=== PATIENT | male | born 1990 | race Caucasian/White ===

== ENCOUNTER → 2016-11-10 | Outpatient (CLI) | payer OTHER ==
[2016-11-10 15:09] LABS: BASO % 0.4 % (0.0-1.0); EOS % 0.7 % (1.0-4.0); LYMPH % 35.8 % (27.0-41.0); MEAN CELL VOLUME 83.9 fl (80.0-94.0); MEAN CORPUSCULAR HGB 29.2 pg (27.0-31.0); MEAN CORPUSCULAR HGB CONC 34.8 g/dl (33.0-37.0); MEAN PLATELET VOLUME 11.2 fl (9.6-12.3); MONO # 0.4 10*3/uL (0.1-1.0); MONO % 6.4 % (3.0-9.0); NEUT # 3.1 10*3/uL (2.3-7.9); NEUT % 56.3 % (47.0-73.0); PLATELET COUNT AUTOMATED 220 10*3/uL (130-400); RED BLOOD COUNT 5.48 10*6/uL (4.50-5.90); RED CELL DISTRI WIDTH 12.7 % (0-14.5); WHITE BLOOD COUNT 5.5 10*3/uL (4.8-10.8)
[2016-11-10 15:29] LABS: ALBUMIN 4.7 gm/dl (3.1-4.5); BILIRUBIN, TOTAL 0.8 mg/dl (0.2-1.0); BUN 13 mg/dl (7-24); CARBON DIOXIDE 25 mmol/L (21-32); CHLORIDE 104 mmol/L (98-107); CHOLESTEROL 251 mg/dL (<200); EST GLOM FILT AFRICAN AMERICAN > 60 ml/min; GLUCOSE 85 mg/dL (65-99); POTASSIUM 4.1 mmol/L (3.5-5.1); SGOT/AST 26 IU/L (3-35); SGPT/ALT 63 U/L (12-78); SODIUM 142 mmol/L (136-145); TRIGLYCERIDES 163 mg/dl (<150); VLDL CHOLESTEROL 33 mg/dL (6-40)
[2016-11-10 15:39] LABS: ALKALINE PHOSPHATASE 77 U/L (45-117); HDL CHOLESTEROL 72 mg/dl (40-60); LDL CHOLESTEROL 146 mg/dL (9-159); TOTAL PROTEIN 7.7 gm/dL (6.4-8.2)
== END | disposition home or self-care (01) ==
LOC: LAB 14:02
PROVIDERS: Nurse Practitioner Family
DX: R03.0 Elevated blood-pressure reading, without diagnosis of hypertension (principal); R00.2 Palpitations; R79.89 Other specified abnormal findings of blood chemistry

== ENCOUNTER 2016-12-20 00:53 | Inpatient (IN) | payer OTHER ==
[~2016-12-20] VITALS: Ht 180.3 cm; Wt 109.5 kg
[2016-12-20] VITALS (8 sets, daily range): BP systolic 112–148; BP diastolic 52–95
--- NOTE | ~2016-12-20 | PR ---
[place], [place] PROGRESS NOTE NAME: ROGELIO FRENCH [facility] #: [id number] UNIT #: [id number] ROOM: 502 DOCTOR: KELLY AKHTAR,RICHIEMadhuri BIRTHDATE: [birth year] DOS: 12/21/2016 REASON FOR VISIT: Atrial fibrillation. HISTORY OF PRESENT ILLNESS: The patient is admitted with atrial fibrillation and his 2D echo is unremarkable. He had a few episodes of rapid heart rates with activity and he was symptomatic, but he remains in atrial fibrillation since yesterday but denies any chest pain, dizziness or syncope. No shortness of breath. REVIEW OF SYSTEMS: Review of the 8 systems negative except as mentioned above. RHYTHM STRIPS: The patient has atrial fibrillation with occasional rapid ventricular rate. PHYSICAL EXAMINATION: VITAL SIGNS: Blood pressure 99/63, pulse 72, BMI 33.7. GENERAL: Alert, comfortable, in no acute distress. HEENT: Pupils are round and equal. No jaundice. Tongue was moist and pharynx was clear. NECK: Supple, no distended neck veins, no carotid bruit. CHEST: Symmetrical, nontender. LUNGS: Clear to auscultation bilaterally. HEART: Irregularly irregular, no S3, no palpable thrills. ABDOMEN: Benign. Bowel sounds normal. EXTREMITIES: Showed no edema. Distal pulses are palpable. SKIN: Warm and dry. No cyanosis, no clubbing. NEUROLOGIC: No focal neurologic deficit. RECTAL: Deferred. GENITOURINARY: Deferred. LABORATORY DATA: Rhythm strips and medications, allergies reviewed. IMPRESSION: 1. New onset atrial fibrillation with intermittent rapid ventricular rate, CHADS2-VASc score of 0. Continue his diltiazem and he received 1 dose of intravenous digoxin for rate control. Due to his recurrent tachyarrhythmia, I would recommend ADOLFO-guided cardioversion for rhythm management. Risks, complications, and alternatives for ADOLFO cardioversion discussed. He is agreeable to pursue the ADOLFO-guided cardioversion. Post-cardioversion, he needs to be anticoagulated. I would put him on Eliquis 5 mg twice a day, Coumadin versus new oral anticoagulants were discussed. He is agreeable to take Eliquis ____ after cardioversion. He is aware of the side effects, especially the risk of bleeding. We will discontinue Lovenox. If he converted to sinus rhythm, I would discontinue Cardizem and send him home on metoprolol 25 mg on p.r.n. basis for rapid heart rates, also discontinued aspirin today. 2. Dyslipidemia, on statins. 3. Overweight. Again diet, exercise, weight loss discussed. 4. If the cardioversion is successful and he is stable, he can go home today and he can attend work from tomorrow and we will follow him in our office in 1-2 [place], [place] PROGRESS NOTE NAME: ROGELIO FRENCH UNIT #: [id number] ROOM: [facility] DOCTOR: KELLY AKHTAR,BARBARA BIRTHDATE: 86 weeks. 5. If he develops recurrent atrial fibrillation, then I would refer him to six pack loader operator for antiarrhythmic therapy and/or ablation. Above treatment plan discussed with the patient and his fiance who is at the bedside and all questions answered. BARBARA MENDOZA MD CM:PNTRANS [id number] BARBARA MENDOZA MD 12/22/16 0604 interface
--- NOTE | ~2016-12-20 | CON ---
[place], [place] REPORT OF CONSULTATION [id number] UN[facility] #: [id number] ROOM: 502 DOCTOR: BARBARA MENDOZA MD BIRTHDATE: [birth year] DOS: 12/20/2016 REASON FOR CONSULTATION: Atrial fibrillation. CLINICAL HISTORY: The patient is a 26-year-old pleasant gentleman with history of intermittent palpitations, non-morbid obesity, presented to the Emergency Room for palpitations. He had no prior history of hypertension, diabetes, or any cardiac history. He noted to have some heart palpitations at work and came to the Emergency Room. Apparently had significant palpitations twice in the past. The first episode was in June 2016 and he was evaluated in the Emergency Room and at that time his EKG appears to be in sinus rhythm and he was discharged home. The second episode was in October of 2016 at work and again nothing was documented on his EKG. Yesterday, he was noted to have these heart palpitations that started late night after 11:00 p.m. 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 His EKG at that work showed he was in atrial fibrillation. Subsequently, he was brought to the Emergency Room and was admitted to the hospital and the cardiology was consulted for further recommendations. He received p.o. Cardizem and intravenous digoxin this morning for the tachycardia. He was noted to have significant tachycardia last night, his heart rates as high as 190 beats per minute. He denies any fever and chills. He did have a bachelor green party on Monday and did consume some alcohol, but he did not have any symptoms on Monday or Monday, except this Monday night but he does not drink excessive coffee or tea. He did cut back on his caffeine intake since the past several months. His dad has history of atrial fibrillation in his 50s. REVIEW OF SYSTEMS: Review of the 10 systems negative except as mentioned. He denies any cough, fever or chills. No genitourinary symptoms. No gastrointestinal symptoms. No neurologic symptoms such as headache, tingling, numbness or weakness. PAST MEDICAL HISTORY: 1. Non-morbid obesity. 2. Intermittent palpitations. PAST SURGICAL HISTORY: Hernia repair. FAMILY HISTORY: The father had atrial fibrillation and mother has hypertension. SOCIAL HISTORY: Does not smoke, does not use illicit drugs. Social alcohol. HOME MEDICATIONS: Reviewed. ALLERGIES: The patient has no known drug allergies. PHYSICAL EXAMINATION: VITAL SIGNS: Blood pressure 122/88, pulse 66, respiratory rate 18. His BMI of 33.7. GENERAL: The patient is alert, oriented, no acute distress. [place], [place] REPORT OF CONSULTATION NAME: ROGELIO FRENCH UNIT #: [id number] ROOM: [facility] DOCTOR: BARBARA MENDOZA MD BIRTHDATE: [birth year] HEENT: Pupils are round and equal. No jaundice. Tongue was moist and pharynx was clear. NECK: Supple, no distended neck veins, no carotid bruit. Thyroid not palpable. CHEST: Chest wall was symmetrical, nontender. LUNGS: Clear to auscultation bilaterally. HEART: Irregularly irregular. No palpable thrills. No S3. No significant murmurs. ABDOMEN: Benign, nontender. Bowel sounds normal. No palpable abdominal aorta. EXTREMITIES: Showed no edema. Distal pulses are palpable. SKIN: Warm and dry. No cyanosis, no clubbing. PSYCHIATRIC: The patient is alert, oriented. No gross evidence of focal neurologic deficit. RECTAL: Deferred. GENITOURINARY: Deferred. MUSCULOSKELETAL: No joint tenderness or swelling. Medications and rhythm strips reviewed. REVIEW OF THE DIAGNOSTIC TESTS: EKG showed in atrial fibrillation with occasional PACs. IMPRESSION: 1. New-onset atrial fibrillation with rapid ventricular rate, his CHADS2-VASc score is 0. Currently rates are controlled, started him on Cardizem-SR 120 mg twice a day for rate control, aspirin 81 mg once daily since he has low CHADS score. Check 2D echo for LV function and valvular function and also to rule out any intracardiac thrombus. If he remains in atrial fibrillation, then consider antiarrhythmic therapy versus DC cardioversion. If he develops recurrent atrial fibrillation, consider pill in a pocket approach and also consider referral to peritoneal dialysis registered nurse. Meanwhile, he was advised to decrease the caffeine intake and also diet, exercise, and weight loss. 2. Dyslipidemia. He was started on statins by primary care physician. 3. Non-morbid obesity. Diet, exercise and weight loss discussed. 4. ____ clinically stable with stable blood pressure and heart rates, he can be discharged later today or tomorrow. 5. He will be followed up with [facility] in a couple of weeks of discharge or if he prefers he can follow with his dad's garage hand, Dr. Gregory in [place], [place]. The above treatment plan, especially the atrial fibrillation, rate control, need for anticoagulation based on CHADS2-VASc score and further outpatient evaluation was discussed with him and all questions were answered. [place], [place] REPORT OF CONSULTATION NAME: FRENCHROGELIO MUÑOZ Reji UNIT #: [id number] ROOM: [facility] DOCTOR: KELLY AKHTAR,BARBARA BIRTHDATE: [birth year] BARBARA MENDOZA MD CM:CONSTR:REPORT OF CONSULTATION 1210 12/21/16 0715 interface
--- NOTE | ~2016-12-20 | O ---
[place], [place] OPERATIVE NOTE [id number] UNIT #: [id number] ROOM: [facility] DOCTOR: KELLY AKHTAR,BARBARA BIRTHDATE: [birth year] DOS: 12/21/2016 PROCEDURE: DC cardioversion. PREOPERATIVE DIAGNOSIS: Atrial fibrillation. POSTOPERATIVE DIAGNOSIS: Atrial fibrillation. SEDATION: LMAC sedation by staff anesthesia. IMMEDIATE COMPLICATION: None. CLINICAL HISTORY: The patient is scheduled for ADOLFO guided cardioversion due to his atrial fibrillation with intermittent rapid ventricular rate. Risks, complications and alternatives were discussed and informed consent obtained. He underwent pre-ADOLFO to rule out intracranial thrombus prior to cardioversion. DESCRIPTION OF PROCEDURE: The patient was brought to the surgical suite and procedure performed in the operating room. The patient was connected to pulse oximetry, blood pressure and heart rhythm monitor. After sedation, he underwent brief ADOLFO which showed no intracardiac thrombus. At that time via anterior and posterior cardioversion patches, the patient received 200 joules of synchronized biphasic direct current and was converted to sinus rhythm and maintained in sinus rhythm. Post-procedure, the patient's vital signs were stable and there is no immediate complications. CONCLUSION: Successful conversion of atrial fibrillation to normal sinus rhythm with single attempt of 200 joules of synchronized biphasic direct current. BARBARA MENDOZA MD CM:OPRECORD:OPERATIVE NOTE [id number] BARBARA MENDOZA MD 12/21/16 1636 interface
[2016-12-20 01:33] LABS: BASO % 0.5 % (0.0-1.0); EOS # 0.2 10*3/uL (0.0-0.4); EOS % 2.7 % (1.0-4.0); HEMATOCRIT 46.5 % (42.0-52.0); HEMOGLOBIN 15.6 g/dl (14.0-18.0); LYMPH # 2.8 10*3/uL (1.3-4.4); LYMPH % 44.7 % (27.0-41.0); MEAN CELL VOLUME 87.4 fl (80.0-94.0); MEAN CORPUSCULAR HGB 29.3 pg (27.0-31.0); MEAN CORPUSCULAR HGB CONC 33.5 g/dl (33.0-37.0); MEAN PLATELET VOLUME 10.3 fl (9.6-12.3); MONO # 0.5 10*3/uL (0.1-1.0); MONO % 8.3 % (3.0-9.0); NEUT # 2.7 10*3/uL (2.3-7.9); NEUT % 43.5 % (47.0-73.0); PLATELET COUNT AUTOMATED 225 10*3/uL (130-400); RED BLOOD COUNT 5.32 10*6/uL (4.50-5.90); RED CELL DISTRI WIDTH 13.2 % (0-14.5); WHITE BLOOD COUNT 6.3 10*3/uL (4.8-10.8)
[2016-12-20 01:46] LABS: PROTHROMBIN TIME 10.8 SECONDS (9.0-12.4)
[2016-12-20 01:53] LABS: ALKALINE PHOSPHATASE 87 U/L (45-117); BILIRUBIN, TOTAL 0.3 mg/dl (0.2-1.0); BUN 12 mg/dl (7-24); CARBON DIOXIDE 29 mmol/L (21-32); CHLORIDE 107 mmol/L (98-107); EST GLOM FILT AFRICAN AMERICAN > 60 ml/min; GLUCOSE 87 mg/dL (65-99); MAGNESIUM 1.8 mg/dL (1.5-2.1); POTASSIUM 4.6 mmol/L (3.5-5.1); SGOT/AST 85 IU/L (3-35); SGPT/ALT 84 U/L (12-78); SODIUM 144 mmol/L (136-145); TOTAL PROTEIN 7.3 gm/dL (6.4-8.2)
[2016-12-20 01:54] LABS: TROPONIN I < 0.015 ng/ml (<0.045)
[2016-12-20 03:57] LABS: HEMOGLOBIN A1c 5.8 % (4.8-5.6)
[2016-12-20 17:19] LABS: FOLIC ACID 6.94 ng/mL (>5.38)
[2016-12-21] VITALS (8 sets, daily range): BP systolic 98–131; BP diastolic 59–79
[2016-12-21 06:50] LABS: BASO % 0.5 % (0.0-1.0); EOS # 0.1 10*3/uL (0.0-0.4); EOS % 2.1 % (1.0-4.0); HEMATOCRIT 50.2 % (42.0-52.0); HEMOGLOBIN 17.1 g/dl (14.0-18.0); LYMPH # 1.9 10*3/uL (1.3-4.4); LYMPH % 30.7 % (27.0-41.0); MEAN CELL VOLUME 86.7 fl (80.0-94.0); MEAN CORPUSCULAR HGB 29.5 pg (27.0-31.0); MEAN CORPUSCULAR HGB CONC 34.1 g/dl (33.0-37.0); MEAN PLATELET VOLUME 10.7 fl (9.6-12.3); MONO # 0.5 10*3/uL (0.1-1.0); MONO % 8.7 % (3.0-9.0); NEUT # 3.6 10*3/uL (2.3-7.9); NEUT % 57.7 % (47.0-73.0); PLATELET COUNT AUTOMATED 247 10*3/uL (130-400); RED BLOOD COUNT 5.79 10*6/uL (4.50-5.90); RED CELL DISTRI WIDTH 13.2 % (0-14.5); WHITE BLOOD COUNT 6.2 10*3/uL (4.8-10.8)
[2016-12-21 07:22] LABS: BUN 13 mg/dl (7-24); CARBON DIOXIDE 30 mmol/L (21-32); CHLORIDE 102 mmol/L (98-107); EST GLOM FILT AFRICAN AMERICAN > 60 ml/min; GLUCOSE 87 mg/dL (65-99); POTASSIUM 4.2 mmol/L (3.5-5.1); SODIUM 138 mmol/L (136-145)
[2016-12-21 07:26] LABS: INTERNATIONAL NORM RATIO 1.1 (2.0-3.5); PROTHROMBIN TIME 11.2 SECONDS (9.0-12.4)
[2016-12-21] MEDS ORDERED: ELIQUIS5 M1 PO (16:53)
[2016-12-21] MEDS ORDERED: B12,B-12,B 12500 MC1 PO (16:53)
[2016-12-21] MEDS ORDERED: LOPRESSOR25 MG PO (16:53)
[2016-12-21] MEDS ORDERED: VITAMIN D31000 UNIT PO (16:53)
[2016-12-21] MEDS ORDERED: ATORVASTATIN CA20 M1 PO (16:53)
== END 2016-12-21 18:43 | disposition home or self-care (01) | DRG 310 ==
LOC: ED 00:53 → EDHOLD 02:50 → 5E 02:50
PROVIDERS: Emergency Medicine Emergency Medical Services; Family Medicine
PROC: 5A2204Z Restoration of Cardiac Rhythm, Single (ICD-10-PCS; principal; 2016-12-21)
DX: I48.91 Unspecified atrial fibrillation (principal); E78.5 Hyperlipidemia, unspecified; R74.0 Nonspecific elevation of levels of transaminase and lactic acid dehydrogenase [LDH]; E66.9 Obesity, unspecified; Z68.33 Body mass index [BMI] 33.0-33.9, adult; Z82.49 Family history of ischemic heart disease and other diseases of the circulatory system; Z83.2 Family history of diseases of the blood and blood-forming organs and certain disorders involving the immune mechanism

== ENCOUNTER 2018-02-28 16:05 | Emergency (ER) | payer OTHER ==
[~2018-02-28] VITALS: Ht 180.3 cm; Wt 98.0 kg
--- NOTE | ~2018-02-28 | EKG ---
[place], [place] ELECTROCARDIOGRAM REPORT NAME: ROGELIO FRENCH UNIT #: [id number] ROOM: DOCTOR: EPIPHANY DRAFT REPORT BIRTHDATE: [birth year] [facility] Test Date: 2018-02-28 Test Time: 19:25:00 Pat Name: ROGELIO FRENCH Department: ER Room: 18 Gender: M Power Line Installer And Repairer: VIANEY : 1990 Requested By: THERESE REA Order Number: [id number] Reading MD: Reginaldo Brown MD Measurements Intervals [place] Rate: 65 P: -3 [place]: 159 QRS: 39 QRSD: 94 T: 20 QT: 386 QTc: 402 Interpretive Statements Sinus rhythm Electronically Signed On 03-02-2018 12:09:44 PDT by Reginaldo Brown MD CM:EKGRPT:ELECTROCARDIOGRAM REPORT [id number] THERESE [facility] D[facility]FT REPORT THERESE REA MD
--- NOTE | ~2018-02-28 | EKG ---
[place], [place] ELECTROCARDIOGRAM REPORT NAME: ROGELIO FRENCH UNIT #: [id number] ROOM: DOCTOR: EPIPHANY DRAFT REPORT BIRTHDATE: [birth year] [facility] Test Date: 2018-02-28 Test Time: 16:09:19 Pat Name: ROGELIO FRENCH Department: ER Room: 18 Gender: M Mailroom Courier: : 1990 Requested By: THERESE REA Order Number: [id number] Reading MD: Reginaldo Brown MD Measurements Intervals [place] Rate: 63 P: 7 [place]: 138 QRS: 51 QRSD: 103 T: 28 QT: 380 QTc: 389 Interpretive Statements Sinus rhythm Electronically Signed On 03-02-2018 12:09:08 PDT by Reginaldo Brown MD CM:EKGRPT:ELECTROCARDIOGRAM REPORT [id number] THERESE SANDERS DRAFT REPORT THERESE REA MD
[~2018-02-28 16:05] MED LIST: ATORVASTATIN CA20 M1 PO; B12,B-12,B 12500 MC1 PO; ELIQUIS5 M1 PO; LOPRESSOR25 MG PO; VITAMIN D31000 UNIT PO
[2018-02-28 16:21] LABS: BASO # 0.1 10*3/uL (0.0-0.1); BASO % 0.7 % (0.0-1.0); EOS # 0.1 10*3/uL (0.0-0.4); EOS % 1.6 % (1.0-4.0); HEMATOCRIT 43.9 % (42.0-52.0); HEMOGLOBIN 15.6 g/dl (14.0-18.0); LYMPH # 2.5 10*3/uL (1.3-4.4); LYMPH % 36.6 % (27.0-41.0); MEAN CELL VOLUME 84.9 fl (80.0-94.0); MEAN CORPUSCULAR HGB 30.2 pg (27.0-31.0); MEAN CORPUSCULAR HGB CONC 35.5 g/dl (33.0-37.0); MEAN PLATELET VOLUME 9.9 fl (9.6-12.3); MONO # 0.6 10*3/uL (0.1-1.0); MONO % 8.5 % (3.0-9.0); NEUT # 3.6 10*3/uL (2.3-7.9); PLATELET COUNT AUTOMATED 248 10*3/uL (130-400); RED BLOOD COUNT 5.17 10*6/uL (4.50-5.90); RED CELL DISTRI WIDTH 12.2 % (0-14.5); WHITE BLOOD COUNT 6.9 10*3/uL (4.8-10.8)
[2018-02-28 16:32] LABS: ACT PARTIAL THROMBO TIME 24.2 SECONDS (20.8-31.5)
[2018-02-28 16:37] LABS: ALBUMIN 3.9 gm/dl (3.1-4.5); ALKALINE PHOSPHATASE 89 U/L (45-117); BUN 11 mg/dl (7-24); CHLORIDE 105 mmol/L (98-107); CREATININE 1.14 mg/dL (0.70-1.30); POTASSIUM 4.1 mmol/L (3.5-5.1); SGOT/AST 32 IU/L (3-35); SGPT/ALT 87 U/L (12-78); SODIUM 140 mmol/L (136-145); TOTAL PROTEIN 7.6 gm/dL (6.4-8.2)
[2018-02-28 16:40] LABS: TROPONIN I < 0.015 ng/ml (<0.045)
[2018-02-28 18:23] VITALS: BP 119/68
== END 2018-02-28 20:32 | disposition home or self-care (01) ==
LOC: ED 16:05
PROVIDERS: Emergency Medicine
DX: R07.89 Other chest pain (principal); R20.2 Paresthesia of skin; R11.0 Nausea; I48.91 Unspecified atrial fibrillation; R61 Generalized hyperhidrosis; K21.9 Gastro-esophageal reflux disease without esophagitis

== ENCOUNTER 2022-05-27 17:56 | Emergency (ER) | payer OTHER ==
[~2022-05-27] VITALS: Ht 180.3 cm; Wt 107.5 kg
[2022-05-27 18:37] LABS: BASO % 0.4 % (0.0-1.0); EOS # 0.1 10*3/uL (0.0-0.4); EOS % 1.6 % (1.0-4.0); HEMATOCRIT 45.5 % (42.0-52.0); LYMPH # 2.3 10*3/uL (1.3-4.4); LYMPH % 33.9 % (27.0-41.0); MEAN CELL VOLUME 84.4 fl (80.0-94.0); MEAN CORPUSCULAR HGB 30.1 pg (27.0-31.0); MEAN CORPUSCULAR HGB CONC 35.6 g/dl (33.0-37.0); MEAN PLATELET VOLUME 10.1 fl (9.6-12.3); MONO # 0.4 10*3/uL (0.1-1.0); MONO % 6.2 % (3.0-9.0); NEUT # 3.9 10*3/uL (2.3-7.9); NEUT % 57.5 % (47.0-73.0); PLATELET COUNT AUTOMATED 265 10*3/uL (130-400); RED BLOOD COUNT 5.39 10*6/uL (4.50-5.90); RED CELL DISTRI WIDTH 13.3 % (0-14.5); WHITE BLOOD COUNT 6.7 10*3/uL (4.8-10.8)
[2022-05-27 18:47] LABS: ACT PARTIAL THROMBO TIME 26.6 SECONDS (20.0-32.1)
[2022-05-27 18:57] LABS: ALKALINE PHOSPHATASE 70 U/L (46-116); BUN 13 mg/dl (9-23); CHLORIDE 106 mmol/L (98-107); LIPASE 45 U/L (12-53); POTASSIUM 3.9 mmol/L (3.4-5.1); SGPT/ALT 61 U/L (10-49); TOTAL PROTEIN 7.1 gm/dL (6.0-8.0)
[2022-05-27 19:35] VITALS: BP 124/81
== END 2022-05-27 19:43 | disposition home or self-care (01) ==
LOC: ED 17:56
PROVIDERS: Physician Assistant
DX: I48.0 Paroxysmal atrial fibrillation (principal); Z98.890 Other specified postprocedural states

== ENCOUNTER → 2022-10-12 | Outpatient (CLI) | payer OTHER | END | disposition home or self-care (01) | LOC: CARD 00:06 | PROVIDERS: ATTEND Internal Medicine Cardiovascular Disease | DX: I51.7 Cardiomegaly (principal); I48.0 Paroxysmal atrial fibrillation ==

== ENCOUNTER 2024-12-13 12:16 | Emergency (ER) | payer OTHER ==
[~2024-12-13] VITALS: Ht 180.3 cm; Wt 113.4 kg
[~2024-12-13 12:16] MED LIST changes: +ASPIRIN CHEWABL81 MG PO; +CELEBREX50 MG PO; +COLLAGEN SKIN1 EACH PO; +FLECAINIDE ACET50 M1 PO; +MULTIVITAMINS1 EAC6 PO
[2024-12-13 12:33] VITALS: BP 134/102
[2024-12-13] MEDS ORDERED: Tetracaine Hydrochloride 0.5% 4 ML BOT OPH ONE (12:55)
[2024-12-13] MEDS ORDERED: SODIUM CHLORIDE 0.9% 250 ML IV ONE (12:55)
[2024-12-13] MEDS ORDERED: SODIUM CHLORIDE 0.9% 500 ML IV ONE (13:21)
== END 2024-12-13 13:22 | disposition home or self-care (01) ==
LOC: ED 12:16
DX: Z77.098 Contact with and (suspected) exposure to other hazardous, chiefly nonmedicinal, chemicals (principal); H57.89 Other specified disorders of eye and adnexa; H53.8 Other visual disturbances; Z88.8 Allergy status to other drugs, medicaments and biological substances; Z79.899 Other long term (current) drug therapy; Z98.890 Other specified postprocedural states